=== PATIENT | female | born 1990 | race American Indian/Alaskan Native ===

== ENCOUNTER 2020-07-05 15:05 | Day surgery (SDC) | payer OTHER, MEDICAID, SELFPAY ==
[2020-07-02 15:13] VITALS: BMI 29.1
[2020-07-05 15:38] VITALS: BP 116/75; PULSE 98; RESP 16; TEMP 37.1; O2SAT 98; BMI 29.1
--- NOTE | 2020-07-05 16:20 | PM.PREOP ---
Pre-operative Note COVID-19 COVID-19 status: Negative Result date/Date tested (Pos, Neg/Pending): 07/02/20 Interval Note History & Physical reviewed/Exam performed by Physician: Yes Changes to H&P: No
--- NOTE | 2020-07-05 16:33 | SUR.OPER ---
Supine on padded OR bed, head on pillow, right arm secured on padded arm boards at <90 degrees abduction,left arm draped free on black armtable, legs uncrossed, safety belt at thigh, tape over blanket over lower legs.
[2020-07-05] MEDS: BUPIVACAINE 0.5% W/ EPI (PF) 30 ML VIAL INJ (17:05)
--- NOTE | 2020-07-05 17:39 | PM.OP.1 ---
Operative Date/Time/Diagnoses Date of procedure: 07/05/20 Time of procedure: 17:00 Pre-op diagnosis: Left middle finger DIP joint fusion with possible infection Post-op diagnosis: same Procedure & Clinicians Procedure: Removal of implants as well as irrigation of debridement of skin soft tissue and bone. Same procedure as scheduled: Yes Indications: Patient is status post a fusion of the left middle finger DIP joint. Patient had episodes of infection soon after her surgery that had been treated with oral antibiotics. Patient was continuing to show signs of possible lingering infection. Surgeon: Derek Newsome Click Yes if Unassisted: Yes Anesthesia Type: Sedation and Local Operative Notes Findings: No obvious signs of infection. No purulence no drainage. Fusion seemed to be intact. The AcuTrak screw had eroded through bone in the distal phalanx. Closure Type: primary Specimen(s): other (Soft tissue and bone were sent for cultures and sensitivities. Aeroboic and anaerobic cultures.) Estimated Blood Loss (mL): 0 Blood products transfused: none Tourniquet time (min): 36 Procedure in detail: On date of service, patient was met in the holding area where her operative site was signed and witnessed by the OR staff. Surgeries once again discussed with the patient and any questions and concerns were answered to her full satisfaction. Patient was taken to the operating theater placed on the operating table in a supine position. Great care taken to ensure that all bony prominences were appropriately padded. Well-padded tourniquet placed up along the upper extremity. Time-out was performed verifying patient's name procedure and operative site. Left arm was prepped and draped in normal sterile fashion. Esmarch was used to exsanguinate the limb. The middle finger was digitally blocked with Marcaine. Previous incision was used. A dorsal incision transverse across the D IP joint as well as lateral incisions to make an H-type incision. This allowed us to expose both the distal and middle phalanx. No sign of any purulence. Rongeur was used to remove soft tissue which was sent to microbiology. There was an area on the lateral aspect of the distal phalanx for 1 could see some of this threads of the screw. Some signs of erosion through the bone possibly due to delayed fusion and motion of the AcuTrak screw over time. Proximal end of the screw was just through the dorsal cortex of the middle phalanx. We were able to pass a guidewire through the AcuTrak screw and then remove it in 1 whole piece. No sign of any fluid or infectious process in either the middle or distal phalanx. Curette was used to remove bone from the screw track and this was sent to microbiology. Bony tunnel from the screw was copiously irrigated as well as the surrounding tissue. Once we were done copiously irrigating the finger it was closed using 5 0 nylon. Finger in the hand were then cleaned, dried, dressed. Patient was taken to the PACU in stable condition. Complications: none Post-operative Condition: stable Disposition: PACU Plan for aftercare: Patient getting gauge in gentle range of motion of the hand and finger. No lifting or gripping more than 1-2 lb.
[2020-07-05 17:50] VITALS: BP 134/82; PULSE 95; RESP 16; TEMP 37.3; O2SAT 100
[2020-07-05 17:58] VITALS: BP 125/79; PULSE 88; RESP 16; TEMP 37.4; O2SAT 99
--- NOTE | 2020-07-05 18:04 | SUR.PHASEII ---
Pt up and ambulating gait steady, all dc instructions given and pt verbalizes understanding, [place] rx also given and explained. Pt up and gettign dressed now
== END 2020-07-05 16:08 | disposition home or self-care (01) ==
PROVIDERS: Referring Provider Orthopaedic Surgery; Visit Provider Orthopaedic Surgery
PROC: (CPT 20680; principal; 2020-07-05 16:00)
DX: T81.42XA Infection following a procedure, deep incisional surgical site, initial encounter (principal); B96.5 Pseudomonas (aeruginosa) (mallei) (pseudomallei) as the cause of diseases classified elsewhere; M20.032 Swan-neck deformity of left finger(s); L53.9 Erythematous condition, unspecified; Z98.1 Arthrodesis status; F17.210 Nicotine dependence, cigarettes, uncomplicated; J45.909 Unspecified asthma, uncomplicated; F41.9 Anxiety disorder, unspecified
CPT/HCPCS: 20680; 11044; 87070; 87075; 87077; 87186; 87205; J2704; J3010